=== PATIENT | female | born 1950 | race Caucasian/White ===

== ENCOUNTER → 2016-07-12 | Outpatient (CLI) | payer MEDICARE ==
[~2016-07-12] MED LIST: ALPR1T PO; CYCL-97 PO; GLIP10TA13 PO; IBUP-15 PO; LIRA0.6P SQ; LISI1TAB PO; LOVA40TA2 PO; LOVA60TA2 PO; NF-ESOM40C PO; OMEP20TA2 PO; PGLT30T PO; SRTR100T PO
--- OUTSIDE RECORDS SUMMARY | 2016-07-12 09:17 | XMS REPORT ---
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 Name Role Phone NATTY GOPI CP Unavailable Allergies No Known Allergies Problems Problem Type Condition ICD-9 Code Onset Dates Condition Status Problem Unspecified sinusitis (chronic) 473.9 Active Problem Chronic pain syndrome 338.4 Active Problem Insomnia, unspecified 780.52 Active Problem Personal history of noncompliance with medical treatment, presenting hazards to health V15.81 Active Problem Herpes zoster without mention of complication 053.9 Active Problem Other herpes zoster with nervous system complications 053.19 Active Problem Diverticulitis of colon (without mention of hemorrhage) 562.11 Active Problem Depressive disorder, not elsewhere classified 311 Active Problem Diverticulosis of colon (without mention of hemorrhage) 562.10 Active Problem Unspecified hereditary and idiopathic peripheral neuropathy 356.9 Active Problem Neoplasms of unspecified nature of bone, soft tissue, and skin 239.2 Active Problem Loss of weight 783.21 Active Problem Other specified disorders of liver 573.8 Active Problem Dermatophytosis of nail 110.1 Active Problem Unspecified gastritis and gastroduodenitis without mention of hemorrhage 535.50 Active Problem Symptomatic menopausal or female climacteric states 627.2 Active Problem Other specified dermatoses 702.8 Active Problem Diabetes 250.00 Active Problem Cough 786.2 Active Problem Chronic rhinitis 472.0 Active Problem Overweight 278.02 Active Problem Allergic rhinitis, cause unspecified 477.9 Active Problem Dysfunction of Eustachian tube 381.81 Active Problem Counseling on substance use and abuse V65.42 Active Problem Lipoma of unspecified site 214.9 Active Problem Acute serous otitis media 381.01 Active Problem Elevated blood pressure reading without diagnosis of hypertension 796.2 Active Problem Diaphragmatic hernia without mention of obstruction or gangrene 553.3 Active Problem Abdominal pain, epigastric 789.06 Active Problem Other general symptoms 780.99 Active Problem Other diseases of nasal cavity and sinuses 478.19 Active Medications No Known Medications Results No Known Results Summary Purpose [employer] Submission
--- NOTE | 2016-07-12 21:08 | Diagnostic Imaging Report ---
INDICATION: Screening for osteoporosis. EXAMINATION: DEXA scan. COMPARISON: There are no prior studies available for comparison. FINDINGS: Bone mineral density of the hips and spine was measured. The T-score for the spine is -0.4. The T-score for left hip is 1.6 and for the right hip is 1.3. All these values are within normal limits. IMPRESSION: The bone mineral density of the hips and spine is within normal limits. Dictated by: Dictated on workstation # [id number]
--- NOTE | 2016-07-13 19:31 | Diagnostic Imaging Report ---
INDICATION: Screening. At this time there are no current complaints. EXAMINATION: Bilateral digital screening mammogram with CAD. The current study was also evaluated with a Computer Aided Detection (CAD) system. COMPARISON: This study was compared to the prior exam of 02/18/2012 and 11/05/2011. FINDINGS: The fibroglandular tissue in both breasts is heterogeneously dense. This does limit the sensitivity of this exam. On the craniocaudad view of the right breast, approximately 5 cm deep to the nipple, there are a few microcalcifications which do seems somewhat more conspicuous than on the prior exam. These calcifications are not as striking on the MLO view and I suspect that they are most likely benign. Even so, I would recommend that a compression/magnification view of this area be obtained in the CC and ML projections so that these calcifications can be better characterized. The left breast is unchanged. IMPRESSION: Additional mammographic views of the right breast would be recommended for further study. ACR BI-RADS Category 0: Incomplete. (Needs additional imaging evaluation). Result letter will be mailed to the patient. Note: At least 10% of breast cancer is not imaged by mammography. Dictated by: Dictated on workstation # [id number]
== END ==
LOC: RAD 09:13
PROVIDERS: ATTEND Nurse Practitioner Family
DX: Z13.820 Encounter for screening for osteoporosis (principal); Z12.31 Encounter for screening mammogram for malignant neoplasm of breast
CPT/HCPCS: 77067; 77080